=== PATIENT | female | born 1960 | race Caucasian/White ===

== ENCOUNTER 2021-03-30 09:49 | Outpatient (REF) | payer OTHER, SELFPAY ==
--- NOTE | ~2021-03-30 | XR_ITS ---
EXAMINATION: XR CHEST CLINICAL INFORMATION: J98.4 - Other disorders of lung COMPARISON: None TECHNIQUE: 2 views of the chest were obtained. FINDINGS: There is hyperinflation/COPD. There is irregular contour bilateral apical pleura likely related to apical blebs. There is no lobar or segmental airspace consolidation or groundglass opacity. The costophrenic sulci are clear. The heart is normal in size. The hilar and mediastinal contours are normal. XR/XR chest 2V IMPRESSION: 1. Hyperinflation/COPD. 2. Irregular contour bilateral apical pleural, likely related to apical blebs. Comparison with prior outside exams would be helpful to confirm chronicity. 3. No pneumothorax, airspace consolidation, or effusion.
[2021-03-30 11:49] LABS: Alanine Aminotransferase 23 U/L (0-31); Anion Gap 17 (12-20); Aspartate Amino Transferase 29 U/L (5-31); Blood Urea Nitrogen 21 mg/dL (9-16); Calcium 9.8 mg/dL (8.4-10.2); Carbon Dioxide 27 mmol/L (22-29); Chloride 99 mmol/L (96-108); Cholesterol 191 mg/dL; Estimated Glomerular Filt Rate > 60; Glucose Fasting 62 mg/dL (60-99); HDL Cholesterol 69 mg/dL; LDL Cholesterol Calculated 106 mg/dl; Potassium 4.6 mmol/L (3.3-5.1); Sodium 138 mmol/L (135-145); Triglycerides 83 mg/dL
[2021-03-30 12:11] LABS: TSH reflex Free T4 0.74 uIU/mL (0.32-4.0); Vitamin D 25-OH Total 21.7 ng/mL (>30)
== END 2021-03-30 09:50 | disposition home or self-care (01) ==
LOC: HO.HMGCX 09:49
PROVIDERS: PCP Internal Medicine; Visit Provider Internal Medicine
DX: Z00.00 Encounter for general adult medical examination without abnormal findings (principal); I10 Essential (primary) hypertension; J98.4 Other disorders of lung; R22.1 Localized swelling, mass and lump, neck; Z78.0 Asymptomatic menopausal state
CPT/HCPCS: 36415; 71046; 80048; 80061; 82306; 84443; 84450; 84460

== ENCOUNTER 2021-04-27 09:33 | Outpatient (REF) | payer OTHER, SELFPAY ==
[2021-05-01 04:27] LABS: HPV mRNA E6/E7 rflx Not Detected (Not Detected)
== END 2021-04-27 09:34 | disposition home or self-care (01) ==
LOC: HO.LAB 09:33
PROVIDERS: PCP Internal Medicine; Visit Provider Advanced Practice Midwife
DX: Z01.419 Encounter for gynecological examination (general) (routine) without abnormal findings (principal); N95.2 Postmenopausal atrophic vaginitis
CPT/HCPCS: 87624; 88142

== ENCOUNTER 2021-06-03 10:47 | Outpatient (REF) | payer OTHER, SELFPAY ==
--- NOTE | ~2021-06-03 | US_ITS ---
EXAMINATION: US THYROID CLINICAL INFORMATION: Localized swelling, mass and lump, neck. COMPARISON: None TECHNIQUE: Linear transducer perez-scale and color Doppler examination with attention to the region of the thyroid. FINDINGS: SIZE: Measurements of the thyroid lobes and nodules are given in sagittal, anteroposterior and transverse dimensions respectively. Right Thyroid Lobe: 4.1 x 0.7 x 1.4 cm, volume 2.1 mL. Parenchyma: The gland echotexture is homogeneous. Thyroid vascularity is increased. Left Thyroid Lobe: 2.9 x 0.6 x 1.4 cm, volume 1.3 mL. Parenchyma: The gland echotexture is homogeneous. Thyroid vascularity is increased. Isthmus: 0.2 cm in maximum AP dimension. No focal thyroid nodule is seen. NODES: No lymphadenopathy is seen in the tissue surrounding the thyroid gland. US/US thyroid IMPRESSION: Homogeneous thyroid parenchyma with increased vascularity. Findings can be seen in the setting of an infectious or inflammatory process. No discrete thyroid nodule. No thyromegaly.
== END 2021-06-03 10:48 | disposition home or self-care (01) ==
LOC: HO.US 10:47
PROVIDERS: Visit Provider Internal Medicine
DX: R22.1 Localized swelling, mass and lump, neck (principal)
CPT/HCPCS: 76536

== ENCOUNTER → 2021-06-10 07:56 | Outpatient (BNVA) | payer OTHER, SELFPAY | PROVIDERS: PCP Internal Medicine; Visit Provider Physician Assistant ==

== ENCOUNTER 2021-06-22 09:24 | Outpatient (REF) | payer OTHER, SELFPAY ==
--- NOTE | ~2021-06-22 | MM_ITS ---
EXAMINATION: MM SCREENING DIGITAL BREAST TOMOSYNTHESIS, BILATERAL CLINICAL INFORMATION: Screening. Asymptomatic. The lifetime risk of breast cancer based on the Tyrer-Cuzick Model is 8.5%. COMPARISON: Mammography: None TECHNIQUE: Digital breast tomosynthesis is performed in both the craniocaudal and mediolateral oblique views along with computer-aided detection (CAD). Synthesized 2D images are generated from the tomosynthesis. FINDINGS: The breasts are heterogeneously dense, which may obscure small masses (ACR BI-RADS breast composition Category c). No significant abnormalities identified within the right breast. Within the superior aspect of the left breast there is a region of architectural distortion approximately 5 cm from nipple which spot compression views are recommended. MM/MM tomosynthesis screening BI IMPRESSION: Left breast DISTORTION for which further evaluation is recommended. ASSESSMENT: BI-RADS 0: Incomplete - Need Additional Imaging Evaluation RECOMMENDATION: Routine annual mammography screening. This patient's information was entered into a reminder system with a target due date for their next mammogram.
--- NOTE | ~2021-06-22 | MM_ITS ---
EXAMINATION: BONE DENSITOMETRY CLINICAL INDICATION: Asymptomatic menopausal state. COMPARISON: This is the patient's baseline examination. TECHNIQUE: Using a [employer] DXA System (software version: 13.1) manufactured by [employer], dual-energy x-ray absorptiometry was performed of the lumbar spine and left hip. The images are of good technical quality. Summary results are attached. FINDINGS: AP SPINE L1-L4: BMD 1.223 g/cm2, Z-score 1.6, T-score 0.4, normal. LEFT FEMUR, NECK: BMD 0.747 g/cm2, Z-score -0.8, T-score -2.1, osteopenia. LEFT FEMUR, TOTAL: BMD 0.859 g/cm2, Z-score -0.2, T-score -1.2, osteopenia. IDENTIFIED RISK FACTORS: Menopause. HISTORY OF FRACTURE: None listed. MEDICATIONS: Vitamin D. MM/XR DEXA axial skeleton IMPRESSION: 1. DIAGNOSIS: Osteopenia based on the lowest T-score value of -2.1 in the femoral neck applying World Health Organization criteria. 2. 10-YEAR FRACTURE RISK PREDICTION, FRAX: Major osteoporotic fracture (clinical spine, forearm, hip or shoulder) 10.1%. Hip fracture 1.5%. 3. Treatment Recommendations: NOF guidelines recommend consideration for treatment in postmenopausal women and men age 50 and older presenting with the following: -A hip or vertebral (clinical or morphometric) fracture. -T-score less than or equal to -2.5 at the femoral neck or spine after appropriate evaluation to exclude secondary causes. -Low bone mass at the hip or spine and a 10-year fracture probability by FRAX of greater than or equal to 3% for hip fracture or greater than or equal to 20% for major osteoporotic fracture based on the [place] adapted WHO algorithm. 4. Other Recommendations: All treatment decisions require clinical judgment and consideration of individual patient factors, including patient preferences, comorbidities, previous drug use, risk factors not captured in the FRAX model (e.g. frailty, falls, vitamin D deficiency, increased bone turnover, interval significant decline in bone density) and possible under or overestimation of fracture risk by FRAX. Additional medical evaluation for secondary cause of low bone mineral density may be appropriate. FUTURE SCAN RECOMMENDATION: People with diagnosed cases of osteoporosis or at high risk for fracture should have regular bone mineral density tests. For patients eligible for Medicare, routine testing is allowed once every 2 years. The testing frequency can be increased to one year for patients who have rapidly progressing disease, those who are receiving or discontinuing medical therapy to restore bone mass, or have additional risk factors.
== END 2021-06-22 09:25 | disposition home or self-care (01) ==
LOC: HO.MAMMO 09:24
PROVIDERS: PCP Internal Medicine; Visit Provider Internal Medicine
DX: Z12.31 Encounter for screening mammogram for malignant neoplasm of breast (principal); Z13.820 Encounter for screening for osteoporosis; M85.80 Other specified disorders of bone density and structure, unspecified site; Z78.0 Asymptomatic menopausal state; Z79.899 Other long term (current) drug therapy
CPT/HCPCS: 77063; 77067; 77080

== ENCOUNTER 2021-07-15 14:16 | Outpatient (REF) | payer OTHER, SELFPAY ==
--- NOTE | ~2021-07-15 | MM_ITS ---
EXAMINATION: MM DIAGNOSTIC DIGITAL BREAST TOMOSYNTHESIS, LEFT CLINICAL INFORMATION: Recall from screening for question of architectural changes upper breast mid depth. Prior remote mammography early 2008 and 2005, purged. COMPARISON: Mammography: 06/22/2021 (new baseline). TECHNIQUE: Digital breast tomosynthesis is performed. 2D images are generated from the tomosynthesis. The following views are obtained: Spot CC, spot MLO FINDINGS: The breasts are heterogeneously dense, which may obscure small masses (ACR BI-RADS breast composition Category c). Additional spot views show no architectural abnormality. There is no mass or focal parenchymal asymmetric density. Results are discussed with the patient at time of visit. MM/MM tomosynthesis added views L IMPRESSION: Additional views are unremarkable. No architectural abnormality. ASSESSMENT: BI-RADS 1: Negative RECOMMENDATION: Routine annual mammography screening. This patient's information was entered into a reminder system with a target due date for their next mammogram.
== END 2021-07-15 14:17 | disposition home or self-care (01) ==
LOC: HO.MAMMO 14:16
PROVIDERS: PCP Internal Medicine; Visit Provider Internal Medicine
DX: N64.89 Other specified disorders of breast (principal)
CPT/HCPCS: 77061; 77065

== ENCOUNTER 2022-08-05 07:58 | Outpatient (REF) | payer OTHER, SELFPAY ==
[2022-08-05 08:47] LABS: Alanine Aminotransferase 22 U/L (0-31); Albumin Level 4.4 g/dL (3.5-5.0); Alkaline Phosphatase 124 U/L (39-117); Anion Gap 13 (12-20); Aspartate Amino Transferase 25 U/L (5-31); Bilirubin Total 0.4 mg/dL (0.0-1.0); Blood Urea Nitrogen 20 mg/dL (9-16); Calcium 9.7 mg/dL (8.4-10.2); Carbon Dioxide 30 mmol/L (22-29); Chloride 102 mmol/L (96-108); Cholesterol 188 mg/dL; Estimated Glomerular Filt Rate > 60; Glucose Fasting 91 mg/dL (60-99); HDL Cholesterol 74 mg/dL; LDL Cholesterol Calculated 98 mg/dl; Potassium 4.9 mmol/L (3.3-5.1); Sodium 140 mmol/L (135-145); Total Protein 7.1 g/dL (6.5-8.0); Triglycerides 83 mg/dL
[2022-08-05 09:11] LABS: TSH reflex Free T4 1.34 uIU/mL (0.32-4.0)
== END 2022-08-05 07:59 | disposition home or self-care (01) ==
LOC: HO.LAB 07:58
PROVIDERS: PCP Internal Medicine; Visit Provider Internal Medicine
DX: Z00.00 Encounter for general adult medical examination without abnormal findings (principal); N95.9 Unspecified menopausal and perimenopausal disorder
CPT/HCPCS: 36415; 80053; 80061; 82306; 84443

== ENCOUNTER 2022-08-17 07:49 | Outpatient (REF) | payer OTHER, SELFPAY ==
--- NOTE | ~2022-08-17 | MM_ITS ---
EXAMINATION: MM SCREENING DIGITAL BREAST TOMOSYNTHESIS, BILATERAL CLINICAL INFORMATION: Screening. Asymptomatic. The lifetime risk of breast cancer based on the Tyrer-Cuzick Model is 5%. COMPARISON: Mammography: 07/15/2021, 06/22/2021 (new baseline) TECHNIQUE: Digital breast tomosynthesis is performed in both the craniocaudal and mediolateral oblique views along with computer-aided detection (CAD). Synthesized 2D images are generated from the tomosynthesis. FINDINGS: There are scattered areas of fibroglandular density (ACR BI-RADS breast composition Category b). There are no significant masses, abnormal calcifications, or other abnormalities. Recommend pattern is similar to prior studies. No interval mass or architectural abnormality. No abnormal calcifications. The axilla are unremarkable. MM/MM tomosynthesis screening BI IMPRESSION: No mammographic evidence of malignancy. ASSESSMENT: BI-RADS 1: Negative RECOMMENDATION: Routine annual mammography screening. This patient's information was entered into a reminder system with a target due date for their next mammogram.
== END 2022-08-17 07:50 | disposition home or self-care (01) ==
LOC: HO.MAMMO 07:49
PROVIDERS: PCP Internal Medicine; Visit Provider Internal Medicine
DX: Z12.31 Encounter for screening mammogram for malignant neoplasm of breast (principal)
CPT/HCPCS: 77063; 77067

== ENCOUNTER 2023-08-08 10:45 | Outpatient (AMB) | payer OTHER, SELFPAY ==
--- NOTE | 2023-08-08 11:37 | A.OFFPC_ITS ---
Vital Signs 08/08/23 11:44 Height 5 ft 8 in Weight 135 lb BMI 20.5 BP 100/64 Blood Pressure Location Lt brachial Position Sitting Pulse 71 Pulse Source Pulse Oximeter Pulse Oximetry (%) 97 Oxygen Delivery Method Room Air Intake Visit Reasons: Physical exam Intake Note: Pt is here today for her PE Allergies No Known Allergies Allergy (Verified 08/08/23 12:06) Medication List - Last Reconciled 08/08/23 by Charlette Carmona MD cetirizine (Zyrtec) 10 mg PO DAILY PRN cholecalciferol (vitamin D3) 50 mcg PO DAILY Tobacco use date assessed: 08/08/23 Last assessed Fall Risk: 08/08/23 Dental Screening Dental Screen Date: 08/08/23 Did you have a dental visit in the last 12 months?: No Was dental information given to patient?: Patient has dentist HPI HPI Comments History of Present Illness Details 63-year-old lady with seasonal allergies , currently taking cetirizine, has atrophic vaginitis, here today for physical exam. She has been feeling well with no complaints at present time. On x-ray done of chest in 2020, it did show however presence of hyper inflation/COPD findings. She goes [place] [facility] for her routine Pap and pelvic exam, currently up-to-date. Has an appointment already for her screening mammogram scheduled for next month. Has been seen at [facility] in [place], for repeat screening colonoscopy, n but patient has not yet received any appointment date yet for procedure [facility] Medical History (Updated 08/04/22 @ 11:51 by Charlette Carmona MD) History of idiopathic urticaria Surgical History H/O colonoscopy No pertinent past surgical history Family History Father No problems noted. Mother No problems noted. Brother Atrial fibrillation Maternal Grandfather Colon cancer, Onset Age: 70 Social History Housing: House Alcohol intake: current Patient Tobacco Use Status: Never used Tobacco e-Cigarette/Vaping Use: Never Used service: No Current occupational status: retired Current occupation: [employer] Cognitive needs: No Hearing needs: No Vision needs: Yes Questionnaire PHQ-9 Over the last 2 weeks, how often have you been bothered by any of the following problems? 1. Little interest or pleasure in doing things: not at all 2. Feeling down, depressed, or hopeless: not at all 3. Trouble falling or staying asleep, or sleeping too much: not at all 4. Feeling tired or having little energy: not at all 5. Poor appetite or overeating: not at all 6. Feeling bad about yourself - or that you are a failure or have let yourself or your family down: not at all 7. Trouble concentrating on things, such as reading the newspaper or watching television: not at all 8. Moving or speaking so slowly that other people could have noticed. Or the opposite - being so fidgety or restless that you have been moving around a lot more than usual: not at all 9. Thoughts that you would be better off or of hurting yourself in some way: not at all Total score: 0 Depression Screening Interpretation: Negative 59633 - PHQ-9 Billing: Yes Source: Developed by Drs. Jeremías Mcdonough, Keyla Ramon, Gera Pinto and colleagues, with an educational jose from [employer]. Thrive Questionnaire Date Thrive assessed: 08/08/23 I am a: Patient What is your living situation today?: I have a steady place to live Within the past 12 months, did the food you bought not last and you didn't have the money to get more?: Never true Within the past 12 months, did you worry whether your food would run out before you got money to buy more?: Never true Do you have trouble paying for medicines?: No Do you have trouble getting transportation to medical appointments?: No Do you have trouble paying your heating and electricity bill?: No Do you have trouble taking care of your child, family member or friend?: No Do you have trouble with day-to-day activities such as bathing, preparing meals, shopping, managing finances, etc.?: No Are you currently unemployed and looking for a job?: No Are you interested in more education?: No Please select the resources that you would like help with: None AUDIT C Alcohol Use Questionnaire (AUDIT-C) 1. How often do you have a drink containing alcohol?: Monthly or less 2. How many drinks containing alcohol do you have on a typical day when you are drinking?: 1 or 2 3. How often do you have six or more drinks on one occasion?: Never Total Score: 1 JOSE-7 AMB Questionnaire JOSE-7 Date JOSE - 7 assessed: 08/08/23 Feeling nervous, anxious, or on edge: 0 = Not at all Not being able to stop or control worryin = Not at all Worrying too much about different things: 0 = Not at all Trouble relaxin = Not at all Being so restless that it is hard to sit still: 0 = Not at all Becoming easily annoyed or irritable: 0 = Not at all Feeling afraid as if something awful might happen: 0 = Not at all Total JOSE-7 score (0-4 normal; 5-9 mild; 10-14 moderate; 15-21 severe): 0 Source: Developed by Drs. Jeremías Mcdonough, Keyla Ramon, Gera Pinto and colleagues, with an educational jose from [employer]. JOSE-7 Assessment Billing JOSE-7 Assessment Tool: JOSE-7 Assessment 17209 Review of Systems Const Denies body aches, Denies fatigue, Denies fever(s), Denies headache(s) and Denies weakness Eyes Details: Sees Dr. Brown in [place] for her routine eye exam Reports no additional complaints and Denies change in vision ENT Reports Normal hearing present, Denies dizziness, Denies headache(s), Denies nasal congestion, Denies nasal discharge and Denies sore throat Card Denies chest pain, Denies chest pain at rest, Denies palpitations, Denies dyspnea and Denies dyspnea on exertion Resp Denies cough, Denies dyspnea, Denies dyspnea on exertion and Denies wheezing GI Denies abdominal pain, Denies hematochezia, Denies change in bowel habits, Denies early satiety and Denies heartburn Denies hematuria, Denies urinary frequency, Denies dysuria, Denies urinary incontinence, Denies urinary urgency and Reports vaginal dryness Musc Reports no additional complaints and Denies numbness Skin/Breast Denies breast pain, Denies breast mass, Denies lesions and Denies rash Neuro Reports Normal hearing present, Denies dizziness, Denies headache(s), Denies focal weakness, Denies numbness, Denies seizure-like activity and Denies weakness Psych Reports no additional complaints Endo Denies fatigue, Denies polydipsia, Denies polyuria and Denies palpitations Tuan/Lymph Denies easy bruising Aller/Immun Denies seasonal rhinorrhea and Denies wheezing Physical exam (Primary Care) Vital Signs: Last Vital Signs Pulse 71 08/08/23 11:44 BP 100/64 08/08/23 11:44 Pulse Ox 97 08/08/23 11:44 Oxygen Delivery Method Room Air 08/08/23 11:44 BMI result Body Mass Index 20.5 Tobacco/Smoking Status: Tobacco use Status Tobacco use date assessed 08/08/23 08/08/23 11:38 Patient Tobacco Use Status Never used Tobacco 08/08/23 11:38 e-Cigarette/Vaping Use Never Used 08/08/23 11:38 PHQ-9: PHQ-9 Score PHQ-9: Total score 0 08/21/23 02:39 Depression Screening Interpretation: Negative Thrive Assessment: Date of Thrive Assessment Date Thrive assessed 08/08/23 08/21/23 02:39 Const General: cooperative, healthy appearing, comfortable, no acute distress, alert and Physically active Nutritional Appearance: average body habitus Orientation/consciousness: patient oriented x3 Limitations: no limitations HENMT Head: Yes normocephalic Ears: hearing grossly normal bilaterally, TM's normal bilaterally and EAC's normal General nose exam: Normal external nose present and No nasal discharge present Face and sinus: Yes face symmetric Mouth: Normal oral and palatal mucosa present, oropharynx normal and moist mucous membranes Eyes General: appearance normal, both eyes and all related structures Neck Neck: Yes full ROM, Yes no lymphadenopathy, Yes supple and Yes anterior neck swelling Thyroid: Thyroid normal Chest Chest palpation & inspection: normal inspection of the chest Breast/axilla palpation: normal palpation of the breasts Resp Effort & Inspection: normal respiratory effort and able to speak in complete sentences Auscultation: clear to auscultation bilaterally Cardio Other: S1-S2 present regular rate and rhythm GI Palpation (GI): Soft to palpation, nontender, no guarding and no masses Auscultation: normal bowel sounds Other: Not done goes to [facility], last Pap smear done 2020 Back/Spine/Pelvis Back: No back tenderness Skin General skin exam: no rashes or lesions noted Neuro General: patient oriented x3, gait normal, tone normal, moves all extremities, Normal light touch and pain sensation, no focal motor deficits and CN's II-XI intact bilaterally Cranial nerves: Yes Normal hearing present Cognition (Neuro): normal cognition Gait exam (Neuro): Normal gait present Extrem General: Yes full ROM, Yes no joint enlargement, Yes no pedal edema, Yes no calf tenderness and Yes normal gait Psych Appearance: grossly normal and well kempt Mental Status: mental status grossly normal Speech and movement: Normal speech and movement present Affect: normal affect Attitude: cooperative Thought process: Normal thought process present Assessment and Plan Assessment & Plan (1) Annual visit for general adult medical examination with abnormal findings: Code(s): Z00.01 - Encounter for general adult medical examination with abnormal findings Plan: Will check appropriate labs. Continued regular dental visit every 6 months and regular eye exams, at least every 2 years. Take adequate calcium in diet and vitamin-D 3 at 2000 IU per cap once a day, in addition to weight-bearing exercises to help maintain good muscle tone and weight control. Instructed to do self-breast exam, and continue to get yearly mammogram, already scheduled, up-to-date with her cervical cancer screening. She has been seen by [facility] [place] for screening colonoscopy, but no date was scheduled, patient advised to call GI clinic to set appointment up for her screening colonoscopy. Reminded to get her yearly flu shot and the new COVID booster which will be out later this month. Up-to-date with her Tdap, has had 1 Shingrix vaccine reported on file, check can see with her pharmacy to see if she was already given the 2nd dose of her Shingrix. Vaccine (2) Hyperinflation of lungs: Code(s): R09.89 - Other specified symptoms and signs involving the circulatory and respiratory systems Plan: As noted on chest x-ray done 03/30/2021 showing hyperinflation/COPD. Patient however not symptomatic. Referred for pulmonary function testing for further evaluation (3) Encounter for physical examination: Code(s): Z00.00 - Encounter for general adult medical examination without abnormal findings Orders: Orders RT pft w methacholine 08/08/23 R09.89 - Other specified symptoms and signs involving the circulatory and respiratory systems PFT pulmonary function test 08/08/23 R09.89 - Other specified symptoms and signs involving the circulatory and respiratory systems Lipid Panel 08/14/23 Z00.01 - Encounter for general adult medical examination with abnormal findings, Z13.220 - Encounter for screening for lipoid disorders, Z13.1 - Encounter for screening for diabetes mellitus, Z78.0 - Asymptomatic menopausal state Basic Metabolic Panel Fasting 08/14/23 Z00.01 - Encounter for general adult medical examination with abnormal findings, Z13.220 - Encounter for screening for lipoid disorders, Z13.1 - Encounter for screening for diabetes mellitus, Z78.0 - Asymptomatic menopausal state Vitamin D 25-OH Total 08/14/23 Z00.01 - Encounter for general adult medical examination with abnormal findings, Z13.220 - Encounter for screening for lipoid disorders, Z13.1 - Encounter for screening for diabetes mellitus, Z78.0 - Asymptomatic menopausal state Coding Level of Care Code Est Pt Prev Care 40-64y(10285) Diagnoses Annual visit for general adult medical examination with abnormal findings Z00.01 Hyperinflation of lungs R09.89 Encounter for physical examination Z00.00 Additional Codes JOSE-7 Assessment Billing - JOSE-7 Assessment Tool: JOSE-7 Assessment 56013 ([id number])
[2023-08-08 11:44] VITALS: BP 100/64; PULSE 71; O2SAT 97; BMI 20.5
== END 2023-08-08 13:35 | disposition home or self-care (01) ==
PROVIDERS: Visit Provider Internal Medicine
DX: Z00.01 Encounter for general adult medical examination with abnormal findings (principal); R09.89 Other specified symptoms and signs involving the circulatory and respiratory systems
CPT/HCPCS: 99396

== ENCOUNTER 2023-08-14 08:33 | Outpatient (REF) | payer OTHER, SELFPAY ==
[2023-08-14 12:48] LABS: Anion Gap 11 (12-20); Blood Urea Nitrogen 20 mg/dL (9-16); Calcium 9.3 mg/dL (8.4-10.2); Carbon Dioxide 27 mmol/L (22-29); Chloride 105 mmol/L (96-108); Cholesterol 189 mg/dL (<200); Estimated Glomerular Filt Rate > 60; Glucose Fasting 82 mg/dL (60-99); HDL Cholesterol 81 mg/dL (>40); LDL Cholesterol Calculated 95 mg/dL (<100); Potassium 4.2 mmol/L (3.3-5.1); Sodium 139 mmol/L (135-145); Triglycerides 68 mg/dL (<150)
[2023-08-14 13:08] LABS: Vitamin D 25-OH Total 32.5 ng/mL (>30)
== END 2023-08-14 08:34 | disposition home or self-care (01) ==
LOC: HO.WFDLDS 08:33
PROVIDERS: Visit Provider Internal Medicine
DX: Z00.01 Encounter for general adult medical examination with abnormal findings (principal); Z13.220 Encounter for screening for lipoid disorders; Z13.1 Encounter for screening for diabetes mellitus; Z78.0 Asymptomatic menopausal state; Z79.899 Other long term (current) drug therapy
CPT/HCPCS: 36415; 80048; 80061; 82306

== ENCOUNTER 2023-08-23 07:39 | Outpatient (REF) | payer OTHER, SELFPAY ==
--- NOTE | ~2023-08-23 | MM_ITS ---
EXAMINATION: MM SCREENING DIGITAL BREAST TOMOSYNTHESIS, BILATERAL CLINICAL INFORMATION: Screening. Asymptomatic. COMPARISON: Mammography: This study is compared with prior exams dating back to 2020. TECHNIQUE: Digital breast tomosynthesis is performed in both the craniocaudal and mediolateral oblique views along with computer-aided detection (CAD). Synthesized 2D images are generated from the tomosynthesis. FINDINGS: The breasts are heterogeneously dense, which may obscure small masses (ACR BI-RADS breast composition Category c). There are no significant masses, abnormal calcifications, or other abnormalities. MM/MM tomosynthesis screening BI IMPRESSION: No mammographic evidence of malignancy. ASSESSMENT: BI-RADS BI-RADS 1 - Negative RECOMMENDATION: Routine annual mammography screening. 1 year F/U This examination should not preclude the clinical evaluation of a suspicious palpable abnormality. This patient's information was entered into a reminder system with a target due date for their next mammogram.
== END 2023-08-23 07:40 | disposition home or self-care (01) ==
LOC: HO.MAMMO 07:39
PROVIDERS: PCP Internal Medicine; Visit Provider Internal Medicine
DX: Z12.31 Encounter for screening mammogram for malignant neoplasm of breast (principal)
CPT/HCPCS: 77063; 77067

== ENCOUNTER → 2023-08-23 07:45 | Outpatient (BNV) | payer OTHER, SELFPAY | PROVIDERS: PCP Internal Medicine; Visit Provider Radiology Diagnostic Radiology | DX: Z12.31 Encounter for screening mammogram for malignant neoplasm of breast (principal) | CPT/HCPCS: 77063; 77067 ==

== ENCOUNTER 2023-09-11 07:05 | Outpatient (REF) | payer OTHER, SELFPAY ==
--- NOTE | 2023-09-11 08:41 | PFT_ITS ---
INDICATIONS: COPD. SPIROMETRY: FEV1 to FVC of 80% with an FEV1 of 2.32 L, which is 101% predicted and an FVC of 2.9 L, which is 97% predicted. No significant response to bronchodilators noted. Maximum voluntary ventilation 62% predicted. LUNG VOLUMES: Total lung capacity 78% predicted with an expiratory residual volume of 72% predicted. DIFFUSION CAPACITY: DLCO 72% predicted. COMPARISONS: None. INTERPRETATION: No obstructive ventilatory defects. No significant response to bronchodilator is noted. There is a mild decrease in maximum voluntary ventilation secondary to likely deconditioning. Lungs volumes do demonstrate a restrictive ventilatory defect consistent with mild restrictive lung disease. In addition, the patient does have a mild diffusion impairment. Clinical correlation warranted. MD CHRISTIANO Calvo/MODGhislaine / [phone]
== END 2023-09-11 07:06 | disposition home or self-care (01) ==
LOC: HO.RESP 07:05
PROVIDERS: PCP Internal Medicine; Visit Provider Internal Medicine
DX: R09.89 Other specified symptoms and signs involving the circulatory and respiratory systems (principal)
CPT/HCPCS: 94010; 94727; 94729

== ENCOUNTER → 2023-09-11 08:41 | Outpatient (BNV) | payer OTHER, SELFPAY | PROVIDERS: PCP Internal Medicine; Visit Provider Hospitalist | DX: J44.9 Chronic obstructive pulmonary disease, unspecified (principal) | CPT/HCPCS: 94060; 94727; 94729 ==

== ENCOUNTER 2023-09-27 08:46 | Outpatient (REF) | payer OTHER, SELFPAY ==
[2023-09-27 10:00] VITALS: PULSE 78; RESP 16; O2SAT 92
== END 2023-09-27 08:47 | disposition home or self-care (01) ==
LOC: HO.RESP 08:46
PROVIDERS: PCP Internal Medicine; Visit Provider Internal Medicine
DX: R09.89 Other specified symptoms and signs involving the circulatory and respiratory systems (principal)
CPT/HCPCS: 94640

== ENCOUNTER 2024-08-29 07:22 | Outpatient (REF) | payer MEDICARE, SELFPAY ==
--- NOTE | ~2024-08-29 | MM_ITS ---
EXAMINATION: MM SCREENING DIGITAL BREAST TOMOSYNTHESIS, BILATERAL CLINICAL INFORMATION: Screening. Asymptomatic. COMPARISON: Mammography: Comparison is made with available priors TECHNIQUE: Digital breast mammography with tomosynthesis is performed in both the craniocaudal and mediolateral oblique views along with computer-aided detection (CAD). FINDINGS: There are scattered areas of fibroglandular density (ACR BI-RADS breast composition Category b). There are no significant masses, abnormal calcifications, or other abnormalities. MM/MM tomosynthesis screening BI IMPRESSION: No mammographic evidence of malignancy. ASSESSMENT: BI-RADS BI-RADS 1 - Negative RECOMMENDATION: Routine annual mammography screening. 1 year F/U This examination should not preclude the clinical evaluation of a suspicious palpable abnormality. This patient's information was entered into a reminder system with a target due date for their next mammogram. Electronically signed by: Shannan Stinson DO 09/10/2024 12:14 PM EDT
== END 2024-08-29 07:23 | disposition home or self-care (01) ==
LOC: HO.MAMMO 07:22
PROVIDERS: PCP Internal Medicine; Visit Provider Internal Medicine
DX: Z12.31 Encounter for screening mammogram for malignant neoplasm of breast (principal)
CPT/HCPCS: 77063; 77067

== ENCOUNTER → 2024-08-29 07:30 | Outpatient (BNV) | payer MEDICARE, SELFPAY | PROVIDERS: PCP Internal Medicine; Visit Provider Internal Medicine | DX: Z12.31 Encounter for screening mammogram for malignant neoplasm of breast (principal) | CPT/HCPCS: 77063; 77067 ==

== ENCOUNTER 2024-12-09 09:18 | Outpatient (AMB) | payer MEDICARE, SELFPAY ==
--- NOTE | 2024-12-09 09:28 | A.OFFVIS_ITS ---
Intake Vital Signs 12/09/24 09:50 Height 5 ft 8 in Weight 135 lb BMI 20.5 BP 100/68 Blood Pressure Location Lt brachial Position Sitting Pulse 82 Pulse Source Pulse Oximeter Pulse Oximetry (%) 97 Oxygen Delivery Method Room Air Intake Visit Reasons: SWV G0439 Intake Note: Pt is here today for her SWV: last mammogram 08/29/24, bone density scan 06/22/21, papsmear 04/28/21, cologuard 07/22/23 Allergies No Known Allergies Allergy (Verified 12/09/24 10:09) Medication List - Last Reconciled 12/09/24 by Charlette Carmona MD cetirizine (Zyrtec) 10 mg PO DAILY PRN cholecalciferol (vitamin D3) 50 mcg PO DAILY HPI SWV G0439 HPI Details AWV ? 64 year old presents for her ? Annual Wellness Visit, initial visit .? She has been feeling well, with no complaints at present time. She is up-to-date with her screening mammogram done 08/29/2024 and has an appointment already scheduled for 09/11/2025 for her next 1. Will order a repeat bone density together with that. Has bone density scan done 06/22/2021 showed presence of osteopenia in her left femoral neck and left femur, normal in AP spine. No history of fractures. She had a negative Cologuard testing done in 2022. Goes to [facility] for her routine Pap and pelvic exam with last Pap smear done 04/27/2021 with no evidence of malignancy, shows atrophic vaginal mucosa. Last fasting lipids and fasting blood sugar was checked 08/14/2023, both of which showed normal results. She is up-to-date with flu vaccine, COVID vaccine, Tdap, has had 2 shingles vaccination, done at [facility]. Prevnar 20 given on today's visit. ? Medical / Social History Reviewed? Past Medical History ?Yes . ? [place] of Care / Care Team list updated ?Yes . ? Surgical/Hospitalization History ?Yes . ? Current Medications (including OTC and supplements) ?Yes . ? Family History ?Yes . ? Tobacco Control form ?Yes . ? AUDIT-C (Alcohol use) form ?Yes . ? Illicit drug use in Social History ?Yes . ? Current diagnosis of depression? ?No ? Appropriate PHQ2/PHQ9 completed ?Yes . ? Data entered by ?Capacity Planning Engineer and reviewed by provider ? Fall Risk ? Fall History? Have you had any falls with injury in the past year? ?No . ? Have you had two or more falls in the past year? ?No . ? Fall Risk Assessment: ?No falls in the past year . ? HRA filled out by the patient, reviewed by Provider and scanned. ? AWV ? Balance? Romberg negative ? Tandem walk ?Yes . ? Walk and Turn ?Yes . ? Rise from sit to stand ?Yes . ?Vision? Corrective lens ?Yes ? Vision screen ? Up-to-date, goes to [facility], negative glaucoma screening, no cataracts, has myopia ?Hearing? Whisper test ?pass . ?Written Plan?Completed. See Patient Documents.? [facility] Medical History (Updated 12/09/24 @ 10:44 by Charlette Carmona MD) Encounter for colorectal cancer screening using Cologuard test Osteopenia of multiple sites History of idiopathic urticaria Surgical History H/O colonoscopy No pertinent past surgical history Family History Father No problems noted. Mother No problems noted. Brother Atrial fibrillation Maternal Grandfather Colon cancer, Onset Age: 70 Social History Housing: House Alcohol intake: current Patient Tobacco Use Status: Never used Tobacco e-Cigarette/Vaping Use: Never Used service: No Current occupational status: retired Current occupation: [employer] Cognitive needs: No Hearing needs: No Vision needs: Yes Questionnaire Medicare Wellness Checkup What [age] What gender do you identify with?: female During the past 4 weeks, how much have you been bothered by emotional problems such as feeling anxious, depressed, irritable, sad or downhearted, and blue?: slightly During the past 4 weeks, has your physical & emotional health limited your social activities with family, friends, neighbors, or groups?: not at all During the past 4 weeks, how much bodily pain have you generally had?: no pain During the past 4 weeks, was someone available to help you if you needed & wanted help?: yes, as much as I wanted During the past 4 weeks, what was the hardest physical activity you could do for at least 2 minutes?: moderate Can you get to places out of walking distance without help? (For eg., can you travel alone on buses, taxis or drive your car?): Yes Can you go shopping for groceries or clothes without someone's help?: Yes Can you prepare your own meals?: Yes Can you do your housework without help?: Yes Because of any health problems, do you need the help of another person with your personal care needs such as eating, bathing, dressing or getting around the house?: No Can you handle your own money without help?: Yes During the past 4 weeks, how would you rate your health in general?: very good During the past 4 weeks how have things been going for you?: pretty well Are you having difficulties driving your car?: no Do you always fasten your seat belt when you are in a car?: yes, usually During past 4 weeks, have you been bothered by the following: never: Falling or dizzy when standing up, Sexual problems?, Teeth or denture problems? and Problems using the telephone? and seldom: Trouble eating well? and Tiredness or fatigue? Have you fallen 2 or more times in the past year?: No Are you afraid of falling?: No Are you a smoker?: no During the past 4 weeks, how many drinks of wine, beer, or other alcoholic beverages did you have?: 1 drink or less per week Do you exercise for about 20 minutes 3 or more times a week?: no, I usually do not exercise this much Have you been given information to help with the following?: no: Hazards in your house that might hurt you? and no: Keeping track of your medications? How often do you have trouble taking medicines the way you have been told to take them?: I do not have to take medicine How confident are you that you can control & manage most of your health problems?: very confident What is your race?: White Mini Mental State Exam (MMSE) Orientation What is the (year) (season) (date) (day) (month)?: year (2024), season (Winter), date (12/09/2024), day (Monday) and month (November) Where are we (state) (county) (town or city) (hospital) (floor)?: state ([place]), county ([place]), town or city ([place]) and hospital/clinic ([facility]) Score Score: 9 Activity of Daily Living Bathing - sponge bath, tub bath or shower: receives no assistance (gets in/out by self, if usual bathing means Dressing - getting clothes from closets & drawers, including inner/outer garments & fasteners.: gets clothes & gets completely dressed without help Toileting - going to the 'toilet room' for urine/bowel elimination & cleaning self/arranging clothes: goes to toilet room, cleans self, arranges clothes without help Transfer: moves in & out of bed and chair without help (may use support object) Continence: controls urination/bowel movements completely by self Feeding: feeds self without help Total Score: 0 Information obtained from: patient Using telephone: independent Traveling: independent Shopping: independent Preparing meals: independent Housework: independent Taking medicine: independent Managing money: independent PHQ-9 Over the last 2 weeks, how often have you been bothered by any of the following problems? 1. Little interest or pleasure in doing things: not at all 2. Feeling down, depressed, or hopeless: not at all 3. Trouble falling or staying asleep, or sleeping too much: not at all 4. Feeling tired or having little energy: not at all 5. Poor appetite or overeating: not at all 6. Feeling bad about yourself - or that you are a failure or have let yourself or your family down: not at all 7. Trouble concentrating on things, such as reading the newspaper or watching television: not at all 8. Moving or speaking so slowly that other people could have noticed. Or the opposite - being so fidgety or restless that you have been moving around a lot more than usual: not at all 9. Thoughts that you would be better off or of hurting yourself in some way: not at all Total score: 0 Depression Screening Interpretation: Negative Depression Screening Done: Yes 74451 - PHQ-9 Billing: Yes Source: Developed by Drs. Jeremías Mcdonough, Keyla Ramon, Gera Pinto and colleagues, with an educational jose from [employer]. Physical Exam Vital Signs: Last Vital Signs Pulse 82 12/09/24 09:50 BP 100/68 12/09/24 09:50 Pulse Ox 97 12/09/24 09:50 Oxygen Delivery Method Room Air 12/09/24 09:50 BMI result Body Mass Index 20.5 Immunizations pneumoc 20-jenny conj-dip cr(PF) 0.5 mL IM syringe Performing Provider: Charlette Carmona MD Performing Location: [facility] Administered by: Irene Ding CMA on 12/09/24 10:38 Dose Route Admin Location Dispensed Lot Number Expiration Date NDC Tape Cutting Machine Operator 0.5 mL IM Left Deltoid 0.5 mL [id number] 03/19/26 [id number] [employer] VIS Given Date VIS Provided VIS Publication Date 12/09/24 Single Vaccine 21 Eligibility Eligibility Date Funding Source Not [facility] Eligible 12/09/24 Private Assessment & Plan Assessment & Plan (1) Encounter for annual wellness visit (AWV) in Medicare patient: Code(s): Z00.00 - Encounter for general adult medical examination without abnormal findings Plan: Medical wellness checklist reviewed, discussed with patient and updated. Prevnar 20 given today requested copy of vaccination records from her pharmacy. Already has a scheduled for her screening mammogram to be done 09/11/2025 up-to-date with her colon cancer screening, negative Cologuard done in 2022. (2) Osteopenia of multiple sites: Code(s): M85.89 - Other specified disorders of bone density and structure, multiple sites Plan: Ordered a DEXA scan to be scheduled together with screening mammogram 09/11/2025 (3) Advanced directives, counseling/discussion: Code(s): Z71.89 - Other specified counseling Plan: Initiated the conversation about Advanced Directives. Advanced Directives help patients prepare for current and future decisions about their medical treatment and place of care. Discussed with patient that it is a process where a patients current condition and prognosis are reviewed, their wishes for information regarding their illness are elicited, and likely medical dilemmas are presented and options discussed. Healthcare proxy form already done in 2022, MOLST form done today. These forms can be amended as needed, reviewed yearly and make changes as needed Orders: Orders XR DEXA axial skeleton Today M85.89 - Other specified disorders of bone density and structure, multiple sites, Z78.0 - Asymptomatic menopausal state Pneumococcal 20 Immunization Today Z23 - Encounter for immunization Medications: New pneumoc 20-jenny conj-dip cr(PF) 0.5 mL IM ONCE 0.5 mL 0RF Z23 - Encounter for immunization Quality Reporting (2019) Depression/Bipolar (159/160/161/177) PHQ-9: Total score: 0 Coding Level of Care Code Medicare First (G0438) Diagnoses Encounter for annual wellness visit (AWV) in Medicare patient Z00.00 Osteopenia of multiple sites M85.89 Advanced directives, counseling/discussion Z71.89 CPT Codes Advance Care Planning - Time spent: 16-45 minutes ([id number]) Additional Codes PHQ-9 - 56441 - PHQ-9 Billing: Yes ([id number]) Advance Care Planning Advance Care Planning discussion: Completed/Scanned Date of discussion: 12/09/24 Who was present: Patient Forms completed: Health Care Proxy (Done in 2019) and MOLST Time spent: 16-45 minutes Actual minutes spent: 2
[2024-12-09 09:50] VITALS: BP 100/68; PULSE 82; O2SAT 97; BMI 20.5
== END 2024-12-09 10:45 | disposition home or self-care (01) ==
PROVIDERS: PCP Internal Medicine; Visit Provider Internal Medicine
DX: Z00.00 Encounter for general adult medical examination without abnormal findings (principal); M85.89 Other specified disorders of bone density and structure, multiple sites; Z71.89 Other specified counseling; Z23 Encounter for immunization

== ENCOUNTER → 2024-12-09 09:18 | Outpatient (BNVA) | payer MEDICARE, SELFPAY | PROVIDERS: PCP Internal Medicine; Visit Provider Internal Medicine | DX: Z00.00 Encounter for general adult medical examination without abnormal findings (principal); Z23 Encounter for immunization; M85.89 Other specified disorders of bone density and structure, multiple sites; Z78.9 Other specified health status | CPT/HCPCS: 90471; 90677; 96127 ==

== ENCOUNTER 2024-12-12 08:23 | Outpatient (REF) | payer MEDICARE, SELFPAY ==
[2024-12-12 09:08] LABS: Hematocrit 42.4 % (37.0-47.0)
[2024-12-12 09:40] LABS: Alanine Aminotransferase 30 U/L (0-31); Anion Gap 10 (12-20); Aspartate Amino Transferase 33 U/L (5-31); Blood Urea Nitrogen 20 mg/dL (9-16); Calcium 9.6 mg/dL (8.4-10.2); Carbon Dioxide 30 mmol/L (22-29); Chloride 107 mmol/L (96-108); Cholesterol 172 mg/dL (<200); Estimated Glomerular Filt Rate > 60; Glucose Fasting 82 mg/dL (60-99); HDL Cholesterol 83 mg/dL (>40); LDL Cholesterol Calculated 79 mg/dL (<100); Potassium 4.5 mmol/L (3.3-5.1); Sodium 142 mmol/L (135-145); Triglycerides 52 mg/dL (<150)
[2024-12-12 10:01] LABS: Vitamin D 25-OH Total 28.2 ng/mL (>30)
== END 2024-12-12 08:24 | disposition home or self-care (01) ==
LOC: HO.LAB 08:23
PROVIDERS: PCP Internal Medicine; Visit Provider Internal Medicine
DX: E04.9 Nontoxic goiter, unspecified (principal); Z13.220 Encounter for screening for lipoid disorders; Z13.1 Encounter for screening for diabetes mellitus; Z78.0 Asymptomatic menopausal state; M85.89 Other specified disorders of bone density and structure, multiple sites
CPT/HCPCS: 36415; 80048; 80061; 82306; 84443; 84450; 84460; 85014; 85018

== ENCOUNTER 2025-09-11 07:20 | Outpatient (REF) | payer MEDICARE, SELFPAY ==
--- NOTE | ~2025-09-11 | MM_ITS ---
EXAMINATION: DXA BONE DENSITY AXIAL HISTORY: M85.89 - Other specified disorders of bone density and structure, multiple... TECHNIQUE: Priztag Dual energy absorptiometry (DEXA) of the lumbar spine, total left hip, and femoral neck was performed. COMPARISON: Comparison is made with the prior examination dated 06/22/2021. FINDINGS: The bone mineral density of the lumbar spine is 1.198 g/cm2, corresponding to a T-score of 0.1, and a Z-score of 1.9. This is indicative of normal bone mineral density. This represents a BMD change of -2.0% compared to the prior exam. This is not statistically significant. The bone mineral density of the left total hip is 0.778 g/cm2, corresponding to a T-score of -1.8, and a Z-score of -0.5. This is indicative of osteopenia. This represents a BMD change of -9.4% compared to the prior exam. This is statistically significant. The bone mineral density of the left femoral neck is 0.702 g/cm2, corresponding to a T-score of -2.4, and a Z-score of -0.8. This is indicative of osteopenia. This represents a BMD change of -6.0% compared to the prior exam. FRACTURE RISK: The FRAX index suggests a ten year probability of major osteoporotic fracture of 12.0%, and of hip fracture 2.7%. MM/XR DEXA axial skeleton IMPRESSION: Based on bone mineral density, and according to World Health Organization (WHO) criteria, the diagnosis is consistent with osteopenia. Statistically, 68% of repeat scans fall within 1 SD (+/- 0.010 g/cm2 for AP spine L1-L4) and 1 SD (+/- 0.012 g/cm2 for femur total) FRAX is a trademark of the [employer]'s [place] for Metabolic Bone Disease, a World Health Organization (WHO) Collaborating Center. Electronically signed by: Jeremías Rodrigez MD 09/11/2025 08:03 AM EDT
--- NOTE | ~2025-09-11 | MM_ITS ---
EXAMINATION: MM SCREENING DIGITAL BREAST TOMOSYNTHESIS, BILATERAL CLINICAL INFORMATION: Screening. Asymptomatic. COMPARISON: Comparison made to multiple prior, most recent August 29, 2024, and most remote June 22, 2021. TECHNIQUE: Digital breast tomosynthesis is performed in mediolateral oblique and craniocaudal views along with computer-aided detection (CAD). Synthesized 2D images are generated from the tomosynthesis. FINDINGS: BREAST COMPOSITION: The breasts are heterogeneously dense, which may obscure small masses. BILATERAL BREASTS: No significant masses, suspicious calcifications or other abnormalities are seen in either breast. MM/MM tomosynthesis screening BI IMPRESSION: BILATERAL BREASTS: Negative, no mammographic evidence of malignancy. Normal interval follow-up is recommended in 12 months. ASSESSMENT: BI-RADS: Category 1: Negative RECOMMENDATION: Routine annual mammography screening. FOLLOW-UP: 1 year F/U This examination should not preclude the clinical evaluation of a suspicious palpable abnormality. This patient's information was entered into a reminder system with a target due date for their next mammogram. Electronically signed by: Anali Gonzalez MD 09/14/2025 04:57 PM EDT
--- OUTSIDE RECORDS SUMMARY | 2025-09-11 07:22 | XMS_ITS | Clinical Summary ---
Author Organization [facility] Address [address] [place] [id number] Phone Care Team Providers Care Music Professor Name Role Phone Charlette Carmona MD Primary Care Provider Allergies No known active allergies Social History Tobacco Use Types Packs/Day Years Used Date Smoking Tobacco: Never Assessed Education Answer Date Recorded Are you interested in more education? Not on maribell e 03/17/2023 Are you concerned about learning? Not on file 03/17/2023 No 03/17/2023 No 03/17/2023 Digital Access Answer Date Recorded No 04/17/2023 No 04/17/2023 No 04/17/2023 Reliable internet access at home? Not on file 04/17/2023 Device with a working camera? Not on file Comments Unknown Sex and Gender Information Value Date Recorded Sex Assigned at Not on file Legal Sex Female 9:50 PM EDT Gender Identity Not on file Sexual Orientation Not on file Last Filed Vital Signs Vital Sign Reading Time Taken Comments Blood Pressure 120/70 12/04/2020 5:30 PM EST Pulse 61 12/04/2020 5:30 PM EST Temperature 36.8 C (98.2 F) 12/04/2020 3:13 PM EST Respiratory Rate 14 12/04/2020 5:30 PM EST Oxygen Saturation 96% 12/04/2020 5:30 PM EST Inhaled Oxygen Concentration - - Weight - - Height - - Body Mass Index - - Plan of Treatment Not on file Medical Devices Not on file Insurance [address] [place], [place] [address] [place], [place] [address] [place], [place] [address] [place], [place] [address] [facility] Care Teams Music Professor Relationship Specialty Start Date End Date Charlette Carmona MD [address] [place] [address] PCP - General Internal Medicine 12/04/20 Additional Source Comments The information contained in this document represents components of the legal health record. It is not the complete legal health record.[facility]
== END 2025-09-11 07:21 | disposition home or self-care (01) ==
LOC: HO.MAMMO 07:20
PROVIDERS: PCP Internal Medicine; Visit Provider Internal Medicine
DX: Z12.31 Encounter for screening mammogram for malignant neoplasm of breast (principal); Z13.820 Encounter for screening for osteoporosis; Z78.0 Asymptomatic menopausal state; M85.89 Other specified disorders of bone density and structure, multiple sites
CPT/HCPCS: 77063; 77067; 77080

== ENCOUNTER → 2025-09-11 08:15 | Outpatient (BNV) | payer MEDICARE, SELFPAY | PROVIDERS: PCP Internal Medicine; Visit Provider Radiology Diagnostic Radiology | DX: E28.39 Other primary ovarian failure (principal) | CPT/HCPCS: 77080 ==